=== PATIENT | female | born 1955 | race Caucasian/White ===

== ENCOUNTER → 2020-02-19 | Emergency (ER) | payer OTHER ==
[~2020-02-19] VITALS: Ht 162.6 cm; Wt 108.9 kg
[2020-02-19 15:07] VITALS: BP 156/85
[2020-02-19 16:21] LABS: Urine Bacteria NONE SEEN /hpf (None Seen); Urine Blood 1+ /uL (Negative); Urine Mucus FEW (None Seen); Urine Specific Gravity 1.018 (1.001-1.035); Urine WBC None Seen /hpf (0 - 5)
== END | disposition left against medical advice (07) ==
LOC: ER 14:39
DX: R53.1 Weakness (principal); Z88.0 Allergy status to penicillin; R11.2 Nausea with vomiting, unspecified
CPT/HCPCS: 71045; 81001; 93005